=== PATIENT | male | born 1955 | race Caucasian/White ===

== ENCOUNTER 2016-04-05 06:31 | Day surgery (SDC) | payer MEDICARE, MEDICAID ==
[~2016-04-05] VITALS: Ht 182.9 cm; Wt 99.8 kg
[~2016-04-05 06:31] MED LIST: CLOP75TA28; DILAUDID; FUROPOW8; OXYCONTIN; PROZAC; ZOCOR
[2016-04-05] MEDS ORDERED: VANCOMYCIN 1GM/250ML D5W 250 ML IV ONE (07:00)
[2016-04-05] MEDS ORDERED: VANCOMYCIN HCL 1000 MG VL IR ONE (07:00)
[2016-04-05] MEDS ORDERED: MIDAZOLAM HCL 1MG/1ML-2 ML VIAL ONE (07:59)
[2016-04-05] MEDS ORDERED: BACITRACIN INJ 50000 UNIT VIAL ONE (07:59)
[2016-04-05] MEDS ORDERED: fentaNYL CITRATE 100 MCG/2 ML VL ONE (08:00)
[2016-04-05] MEDS ORDERED: LIDOCAINE 2%HCL (LOCAL ANESTH.) INJ 20ML MDV ONE ×3 (08:07→08:13)
[2016-04-05] MEDS ORDERED: DOXYCYCLINE 100 MG TAB/CAP PO ONE (10:00)
== END 2016-04-05 11:50 | disposition home or self-care (01) ==
LOC: CATH 06:31
PROVIDERS: ATTEND Specialist
DX: I25.5 Ischemic cardiomyopathy (principal); I20.9 Angina pectoris, unspecified; F41.9 Anxiety disorder, unspecified; F32.9 Major depressive disorder, single episode, unspecified; F17.200 Nicotine dependence, unspecified, uncomplicated; I25.10 Atherosclerotic heart disease of native coronary artery without angina pectoris; I21.3 ST elevation (STEMI) myocardial infarction of unspecified site; K75.9 Inflammatory liver disease, unspecified; K21.9 Gastro-esophageal reflux disease without esophagitis
CPT/HCPCS: 33263; J2250; J3010; J3370; J7030; 99152